=== PATIENT | female | born 1995 | race Caucasian/White ===

== ENCOUNTER 2018-01-18 17:04 | Emergency (ER) | payer MEDICAID ==
[2018-01-18 17:18] VITALS: BP 109/62
[2018-01-18] MEDS ORDERED: Sodium Chloride 0.9% 5 ML Syringe FLUSH PRN (17:57)
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
[2018-01-18 18:46] LABS: ANION GAP 14.4 mmol/L (5-15); CHLORIDE,CL 108 mmol/L (98-115); SODIUM,NA 145 mmol/L (136-145)
== END 2018-01-18 19:15 | disposition home or self-care (01) ==
LOC: KA.ED 17:04
DX: R10.13 Epigastric pain (principal); F41.9 Anxiety disorder, unspecified; F32.9 Major depressive disorder, single episode, unspecified; Z79.899 Other long term (current) drug therapy
CPT/HCPCS: 80053; 81001; 83690; 84702; 85025; 99284